=== PATIENT | female | born 1930 | race Caucasian/White ===

== ENCOUNTER 2016-12-22 11:43 | Inpatient (IN) | payer MEDICARE, OTHER ==
--- NOTE | 2016-12-22 12:06 | ED ---
General Adult HPI - General Source: patient, family, RN notes reviewed Mode of arrival: wheelchair Limitations: no limitations <Geoff Gupta - Last Filed: 12/22/16 14:21> <Kofi Thorpe - Last Filed: 12/22/16 17:43> - General Chief complaint: Fall Stated complaint: fall Time Seen by Provider: 12/22/16 11:55 - History of Present Illness Initial comments: Patient is a 86-year-old female who presents emergency room today with a chief complaint of fall that occurred approximately an hour and a half ago. Does admit that she was trying to put on her shoes when she slipped on the hardwood floor falling down in the right side of her cheek. States he was no loss conscious. Denies any headache. Does admit some bruising some swelling locally to the right cheek area but denies any other complaints. Does admit that she is on Coumadin. She states she does check the level at home checked it this morning was 3.1. Denies any other complaints or associated symptoms at this time. Patient denies any recent fever, chills, shortness of breath, chest pain, back pain, abdominal pain, nausea or vomiting, numbness or tingling, dysuria or hematuria, constipation or diarrhea, headaches or visual changes, or any other complaints. (Geoff Gupta) - Related Data Home Medications Medication Instructions Recorded Confirmed Atenolol [Tenormin] 50 mg PO BID 12/22/16 12/22/16 Furosemide [Lasix] 80 mg PO DAILY 12/22/16 12/22/16 Levothyroxine Sodium [Synthroid] 75 mcg PO DAILY 12/22/16 12/22/16 Lisinopril [Zestril] 20 mg PO BID 12/22/16 12/22/16 Potassium Chloride [Klor-Con M15] 15 meq PO DAILY 12/22/16 12/22/16 Simvastatin [Zocor] 40 mg PO HS 12/22/16 12/22/16 Warfarin [Coumadin] 2.5 mg PO MOWESA 12/22/16 12/22/16 Warfarin [Coumadin] 3.75 mg PO SUTUTHFR 12/22/16 12/22/16 hydrALAZINE HCL [Apresoline] 50 mg PO TID 12/22/16 12/22/16 Previous Rx's Medication Instructions Recorded Sulfamethox-Tmp 800-160Mg [Bactrim 1 tab PO Q12HR #14 tab 12/22/16 DS 800-160 mg] Allergies Allergy/AdvReac Type Severity Reaction Status Date / Time codeine Allergy Unknown Verified 12/22/16 12:12 Review of Systems ROS Other: All systems not noted in ROS Statement are negative. <Geoff Gupta - Last Filed: 12/22/16 14:21> ROS Other: All systems not noted in ROS Statement are negative. <Kofi Thorpe - Last Filed: 12/22/16 17:43> ROS Statement: Those systems with pertinent positive or pertinent negative responses have been documented in the HPI. Past Medical History Past Medical History: Atrial Fibrillation, Heart Failure, CVA/TIA History of Any Multi-Drug Resistant Organisms: None Reported Past Surgical History: Cholecystectomy Past Psychological History: No Psychological Hx Reported Smoking Status: Never smoker Past Alcohol Use History: None Reported Past Drug Use History: None Reported <Geoff Gupta - Last Filed: 12/22/16 14:21> General Exam Limitations: no limitations <Geoff Gupta - Last Filed: 12/22/16 14:21> General appearance: alert, in no apparent distress Head exam: Present: atraumatic, normocephalic, normal inspection Eye exam: Present: normal appearance, PERRL, EOMI. Absent: scleral icterus, conjunctival injection, periorbital swelling ENT exam: Present: normal exam, mucous membranes moist Neck exam: Present: normal inspection. Absent: tenderness, meningismus, lymphadenopathy Respiratory exam: Present: normal lung sounds bilaterally, respiratory distress , chest wall tenderness, accessory muscle use, decreased breath sounds, prolonged expiratory. Absent: wheezes, rales, rhonchi, stridor Cardiovascular Exam: Present: normal rhythm, tachycardia, normal heart sounds. Absent: systolic murmur, diastolic murmur, rubs, gallop, clicks GI/Abdominal exam: Present: soft, normal bowel sounds. Absent: distended, tenderness, guarding, rebound, rigid Extremities exam: Present: normal inspection, full ROM, normal capillary refill. Absent: tenderness, pedal edema, joint swelling, calf tenderness Back exam: Present: normal inspection Neurological exam: Present: alert, oriented X3, CN II-XII intact Psychiatric exam: Present: normal affect, normal mood Skin exam: Present: warm, dry, intact, normal color. Absent: rash <Kofi Thorpe - Last Filed: 12/22/16 17:43> - General Exam Comments Initial Comments: General: The patient is awake and alert, in no distress, and does not appear acutely ill. Eye: Pupils are equal, round and reactive to light, extra-ocular movements are intact. No nystagmus. There is normal conjunctiva bilaterally. No signs of icterus. Ears, nose, mouth and throat: There are moist mucous membranes and no oral lesions. bruising to the right cheek. Neck: The neck is supple, there is no tenderness or JVD. Cardiovascular: There is a regular rate and rhythm. No murmur, rub or gallop is appreciated. Respiratory: Lungs are clear to auscultation, respirations are non-labored, breath sounds are equal. No wheezes, stridor, rales, or rhonchi. Gastrointestinal: Soft, non-distended, non-tender abdomen without masses or organomegaly noted. There is no rebound or guarding present. No CVA tenderness. Bowel sounds are unremarkable. Musculoskeletal: Normal ROM, no tenderness. Strength 5/5. Sensation intact. Pulses equal bilaterally 2+. Neurological: A&O x 3. CN II-XII intact, There are no obvious motor or sensory deficits. Coordination appears grossly intact. Speech is normal. Skin: Skin is warm and dry and no rashes or lesions are noted. Bruising to the right cheek. Psychiatric: Cooperative, appropriate mood & affect, normal judgment. (Geoff Gupta) Course <Geoff Gupta - Last Filed: 12/22/16 14:21> <Kofi Thorpe - Last Filed: 12/22/16 17:43> Vital Signs 12/22/16 12/22/16 12/22/16 11:46 15:00 15:03 Temperature 97.5 F L 98.4 F Pulse Rate 100 101 H Respiratory 20 16 Rate Blood Pressure 136/97 167/79 O2 Sat by Pulse 98 80 L 93 L Oximetry 12/22/16 12/22/16 15:41 16:51 Temperature 97.3 F L Pulse Rate 71 75 Respiratory 20 18 Rate Blood Pressure 174/81 157/83 O2 Sat by Pulse 96 97 Oximetry - Reevaluation(s) Reevaluation #1: 12/22/16 12:06 Patient's family member that pulled nurse aside and asked for basic labs to be checked she has not had labs done in a while and they were concerned. Patient will have INR, CBC and a BMP currently pending CT of facial bones and head. Patient is no complaints other than recent the right cheek at this time. (Geoff Gupta) Reevaluation #2: 12/22/16 17:42 Negative improved oxygen with oxygen as well as will be placed on breathing treatments 12/22/16 17:42 And diuresis for CHF (Kofi Thorpe) Medical Decision Making - Lab Data Result diagrams: 12/22/16 12:45 12/22/16 12:45 <Geoff Gupta - Last Filed: 12/22/16 14:21> - Lab Data Result diagrams: 12/22/16 12:45 12/22/16 12:45 <Kofi Thorpe - Last Filed: 12/22/16 17:43> - Medical Decision Making Patient reexamined at this time shows no signs of distress. Patient's CT of the facial bones negative. Patient's CT of the head negative for any acute abnormalities. Results were discussed with patient. Patient admits that she did hit the right cheek. Does not believe she hit the) no loss consciousness. Denies any headache. Patient's labs were obtained family states that she had not seen the doctor and while and concern. Labs reviewed INR 2.9. Advised follow-up. Patient's urinalysis does show evidence for urinary tract infection. Will be started on antibiotic. Patient family updated. Patient will be discharged home. Patient and family have been updated and are aware the plan state understanding and are in agreement (Geoff Gupta) A6 female the ER for evaluation of weakness, fall, patient does have confluent pneumonia with urinary tract infection and CHF, exertional dyspnea and hypoxia. Patient be admitted for cardiology evaluation. (Kofi Thorpe) - Lab Data Lab Results 12/22/16 12/22/16 12/22/16 Range/Units 12:45 12:45 12:45 WBC 6.8 (3.8-10.6) k/uL RBC 4.02 (3.80-5.40) m/uL Hgb 12.2 (11.4-16.0) gm/dL Hct 37.6 (34.0-46.0) % MCV 93.4 (80.0-100.0) fL MCH 30.4 (25.0-35.0) pg MCHC 32.6 (31.0-37.0) g/dL RDW 15.7 H (11.5-15.5) % Plt Count 184 (150-450) k/uL Neutrophils % 78 % Lymphocytes % 13 % Monocytes % 5 % Eosinophils % 1 % Basophils % 1 % Neutrophils # 5.3 (1.3-7.7) k/uL Lymphocytes # 0.9 L (1.0-4.8) k/uL Monocytes # 0.4 (0-1.0) k/uL Eosinophils # 0.1 (0-0.7) k/uL Basophils # 0.1 (0-0.2) k/uL PT 28.3 H (9.0-12.0) sec INR 2.9 (<1.1) Sodium 141 (137-145) mmol/L Potassium 4.0 (3.5-5.1) mmol/L Chloride 98 (98-107) mmol/L Carbon Dioxide 32 H (22-30) mmol/L Anion Gap 11 mmol/L BUN 30 H (7-17) mg/dL Creatinine 0.89 (0.52-1.04) mg/dL Est GFR (MDRD) Af Amer >60 (>60 ml/min/1.73 sqM) Est GFR (MDRD) Non-Af >60 (>60 ml/min/1.73 sqM) Glucose 120 H (74-99) mg/dL Calcium 9.5 (8.4-10.2) mg/dL Total Creatine Kinase (30-135) U/L CK-MB (CK-2) (0.0-2.4) ng/mL CK-MB (CK-2) Rel Index Troponin I (0.000-0.034) ng/mL NT-Pro-B Natriuret Pep pg/mL Urine Color Urine Appearance (Clear) Urine pH (5.0-8.0) Ur Specific [place] (1.001-1.035) Urine Protein (Negative) Urine Glucose (UA) (Negative) Urine Ketones (Negative) Urine Blood (Negative) Urine Nitrate (Negative) Urine Bilirubin (Negative) Urine Urobilinogen (<2.0) mg/dL Ur Leukocyte Esterase (Negative) Urine RBC (0-5) /hpf Urine WBC (0-5) /hpf Ur Squamous Epith Cells (0-4) /hpf Urine Bacteria (None) /hpf Hyaline Casts (0-2) /lpf Urine Mucus (None) /hpf 12/22/16 12/22/16 12/22/16 Range/Units 12:45 12:45 13:31 WBC (3.8-10.6) k/uL RBC (3.80-5.40) m/uL Hgb (11.4-16.0) gm/dL Hct (34.0-46.0) % MCV (80.0-100.0) fL MCH (25.0-35.0) pg MCHC (31.0-37.0) g/dL RDW (11.5-15.5) % Plt Count (150-450) k/uL Neutrophils % % Lymphocytes % % Monocytes % % Eosinophils % % Basophils % % Neutrophils # (1.3-7.7) k/uL Lymphocytes # (1.0-4.8) k/uL Monocytes # (0-1.0) k/uL Eosinophils # (0-0.7) k/uL Basophils # (0-0.2) k/uL PT (9.0-12.0) sec INR (<1.1) Sodium (137-145) mmol/L Potassium (3.5-5.1) mmol/L Chloride (98-107) mmol/L Carbon Dioxide (22-30) mmol/L Anion Gap mmol/L BUN (7-17) mg/dL Creatinine (0.52-1.04) mg/dL Est GFR (MDRD) Af Amer (>60 ml/min/1.73 sqM) Est GFR (MDRD) Non-Af (>60 ml/min/1.73 sqM) Glucose (74-99) mg/dL Calcium (8.4-10.2) mg/dL Total Creatine Kinase 71 (30-135) U/L CK-MB (CK-2) 3.3 H* (0.0-2.4) ng/mL CK-MB (CK-2) Rel Index 4.6 Troponin I <0.012 (0.000-0.034) ng/mL NT-Pro-B Natriuret Pep 4080 pg/mL Urine Color Light Yellow Urine Appearance Cloudy H (Clear) Urine pH 7.0 (5.0-8.0) Ur Specific [place] 1.005 (1.001-1.035) Urine Protein Trace H (Negative) Urine Glucose (UA) Negative (Negative) Urine Ketones Negative (Negative) Urine Blood Negative (Negative) Urine Nitrate Negative (Negative) Urine Bilirubin Negative (Negative) Urine Urobilinogen <2.0 (<2.0) mg/dL Ur Leukocyte Esterase Large H (Negative) Urine RBC 3 (0-5) /hpf Urine WBC 61 H (0-5) /hpf Ur Squamous Epith Cells <1 (0-4) /hpf Urine Bacteria Rare H (None) /hpf Hyaline Casts 10 H (0-2) /lpf Urine Mucus Rare H (None) /hpf Critical Care Time Critical Care Time: Yes Total Critical Care Time: 31 <Kofi Thorep - Last Filed: 12/22/16 17:43> Disposition Time of Disposition: 14:23 <Geoff Gupta - Last Filed: 12/22/16 14:21> <Kofi Thorpe - Last Filed: 12/22/16 17:43> Clinical Impression: Fall, Facial contusion, UTI (urinary tract infection), Pneumonia, CHF exacerbation, Hypoxia Disposition: ADMITTED IP TO THIS HOSP Condition: Good Additional Instructions: Please use medication as discussed. Please follow-up with family doctor in the next 2 days. Please return to emergency room if the symptoms increase or worsen or for any other concerns. Prescriptions: Sulfamethox-Tmp 800-160Mg [Bactrim DS 800-160 mg] 1 tab PO Q12HR #14 tab Referrals: Demar Valente DO [Primary Care Provider] - 1-2 days
--- NOTE | 2016-12-22 12:43 | CT ---
EXAMINATION TYPE: CT brain wo con DATE OF EXAM: 12/22/2016 12:37 PM COMPARISON: NONE HISTORY: Fall today with facial injuries. CT DLP: 1703 mGycm Automated exposure control for dose reduction was used. FINDINGS: Exam limited due to motion artifact. No obvious intraparenchymal hemorrhage. No midline shift. Calvar ium intact. Generalized degenerative change seen. Changes of chronic sinusitis noted. IMPRESSION: Limited exam due to artifact demonstrates no obvious acute intracranial hemorrhage, mass effect, or m idline shift is seen.
--- NOTE | 2016-12-22 12:47 | CT ---
EXAMINATION TYPE: CT facial bones wo con DATE OF EXAM: 12/22/2016 12:37 PM COMPARISON: NONE HISTORY: Fall today with facial injuries. CT DLP: 1703 mGycm Automated exposure control for dose reduction was used. TECHNIQUE: CT scan of the sinuses is performed without contrast, axial images are obtained, coronal r eformatted images are also reviewed. FINDINGS: Changes of mild chronic sinusitis noted. Degenerative change of the spine. Calcific changes involving the carotid arteries Globes are intact. Nasal septal deviation noted. The ostiomeatal complex is patent bilaterally on the coronal images. Visualized portion of mastoid air cells show no abnormal opacification. The globes are intact bilate rally. IMPRESSION: 1. No acute fracture
[2016-12-22 13:18] LABS: Basophils # (A) 0.1 k/uL (0-0.2); Basophils % (A) 1 %; CH 30.2; CHCM 32.6; Eosinophils # (A) 0.1 k/uL (0-0.7); Eosinophils % (A) 1 %; HCT 37.6 % (34.0-46.0); HDW 3.11; HGB 12.2 gm/dL (11.4-16.0); Luc # (Auto) 0.14; Luc % (Auto) 2; Lymphocytes # (A) 0.9 k/uL (1.0-4.8); Lymphocytes % (A) 13 %; MCH 30.4 pg (25.0-35.0); MCHC 32.6 g/dL (31.0-37.0); MCV 93.4 fL (80.0-100.0); Mean Platelet Volume 9.7; Monocytes # (A) 0.4 k/uL (0-1.0); Monocytes % (A) 5 %; Neutrophils # (A) 5.3 k/uL (1.3-7.7); Neutrophils % (A) 78 %; RBC 4.02 m/uL (3.80-5.40); RDW 15.7 % (11.5-15.5); WBC 6.8 k/uL (3.8-10.6); WBC (Perox) 7.27
[2016-12-22 13:26] LABS: INR 2.9 (<1.1); Prothrombin Time 28.3 sec (9.0-12.0)
[2016-12-22 13:38] LABS: Anion Gap 11 mmol/L; Blood Urea Nitrogen 30 mg/dL (7-17); Calcium 9.5 mg/dL (8.4-10.2); Carbon Dioxide 32 mmol/L (22-30); Chloride 98 mmol/L (98-107); Glucose 120 mg/dL (74-99); Non-African American GFR(MDRD) >60 (>60 ml/min/1.73 sqM); Sodium 141 mmol/L (137-145)
[2016-12-22 14:02] LABS: Appearance,Urine Cloudy (Clear); Bacteria,Urine Rare /hpf; Bilirubin,Urine Negative (Negative); Glucose,Urine (UA) Negative (Negative); Ketones,Urine Negative (Negative); Leukocyte Esterase,Urine Large (Negative); Mucus,Urine Rare /hpf; Nitrite,Urine Negative (Negative); Particle Count 71468; Protein,Urine Trace (Negative); RBC,Urine 3 /hpf (0-5); Specific Gravity,Urine 1.005 (1.001-1.035); Squamous Epithelial Cell,Urine <1 /hpf (0-4); UA Billing (MACRO vs. MICRO) MICRO; Urobilinogen,Urine <2.0 mg/dL (<2.0); WBC,Urine 61 /hpf (0-5)
--- NOTE | 2016-12-22 15:38 | ED ---
Medical Decision Making - Medical Decision Making Or discharge nurse and staff repeat vitals and 83% on room air. Patient denies any shortness of breath. Patient does have history of CHF. Does admit some leg swelling. Patient's family at bedside stating that her Lasix was recently increased from 40-80 mg. States that swelling of legs have improved. Patient' s pulse ox remains coherent reevaluation. Patient denies any shortness breath or any other complaints. Patient will have chest x-ray along with further lab and workup. Patient placed on oxygen 3 L currently 94%. Patient asymptomatic and resting comfortably in the stretcher. EKG performed at 1508: Shows A. fib with occasional PVC. QRS 86. QT/QTC 370/ 434. Acute ST changes. Patient reevaluated and shows no signs of distress. Resting comfortably. Patient's pulse ox remains low on room air is been on 3 L of oxygen here in the ER. Patient complains. Patient's chest x-ray does show evidence for CHF along with possible pneumonia. Patient BNP greater than 4000. Patient is on Lasix at home will be given dose of Lasix here in the emergency room started on antibiotics both Rocephin and azithromycin cover for pneumonia and also urinary tract infection. Patient will be admitted to the hospital for CHF, pneumonia, UTI. - Lab Data Result diagrams: 12/22/16 12:45 12/22/16 12:45 Lab Results 12/22/16 12/22/16 12/22/16 Range/Units 12:45 12:45 12:45 WBC 6.8 (3.8-10.6) k/uL RBC 4.02 (3.80-5.40) m/uL Hgb 12.2 (11.4-16.0) gm/dL Hct 37.6 (34.0-46.0) % MCV 93.4 (80.0-100.0) fL MCH 30.4 (25.0-35.0) pg MCHC 32.6 (31.0-37.0) g/dL RDW 15.7 H (11.5-15.5) % Plt Count 184 (150-450) k/uL Neutrophils % 78 % Lymphocytes % 13 % Monocytes % 5 % Eosinophils % 1 % Basophils % 1 % Neutrophils # 5.3 (1.3-7.7) k/uL Lymphocytes # 0.9 L (1.0-4.8) k/uL Monocytes # 0.4 (0-1.0) k/uL Eosinophils # 0.1 (0-0.7) k/uL Basophils # 0.1 (0-0.2) k/uL PT 28.3 H (9.0-12.0) sec INR 2.9 (<1.1) Sodium 141 (137-145) mmol/L Potassium 4.0 (3.5-5.1) mmol/L Chloride 98 (98-107) mmol/L Carbon Dioxide 32 H (22-30) mmol/L Anion Gap 11 mmol/L BUN 30 H (7-17) mg/dL Creatinine 0.89 (0.52-1.04) mg/dL Est GFR (MDRD) Af Amer >60 (>60 ml/min/1.73 sqM) Est GFR (MDRD) Non-Af >60 (>60 ml/min/1.73 sqM) Glucose 120 H (74-99) mg/dL Calcium 9.5 (8.4-10.2) mg/dL Total Creatine Kinase (30-135) U/L CK-MB (CK-2) (0.0-2.4) ng/mL CK-MB (CK-2) Rel Index Troponin I (0.000-0.034) ng/mL NT-Pro-B Natriuret Pep pg/mL Urine Color Urine Appearance (Clear) Urine pH (5.0-8.0) Ur Specific [place] (1.001-1.035) Urine Protein (Negative) Urine Glucose (UA) (Negative) Urine Ketones (Negative) Urine Blood (Negative) Urine Nitrate (Negative) Urine Bilirubin (Negative) Urine Urobilinogen (<2.0) mg/dL Ur Leukocyte Esterase (Negative) Urine RBC (0-5) /hpf Urine WBC (0-5) /hpf Ur Squamous Epith Cells (0-4) /hpf Urine Bacteria (None) /hpf Hyaline Casts (0-2) /lpf Urine Mucus (None) /hpf 12/22/16 12/22/16 12/22/16 Range/Units 12:45 12:45 13:31 WBC (3.8-10.6) k/uL RBC (3.80-5.40) m/uL Hgb (11.4-16.0) gm/dL Hct (34.0-46.0) % MCV (80.0-100.0) fL MCH (25.0-35.0) pg MCHC (31.0-37.0) g/dL RDW (11.5-15.5) % Plt Count (150-450) k/uL Neutrophils % % Lymphocytes % % Monocytes % % Eosinophils % % Basophils % % Neutrophils # (1.3-7.7) k/uL Lymphocytes # (1.0-4.8) k/uL Monocytes # (0-1.0) k/uL Eosinophils # (0-0.7) k/uL Basophils # (0-0.2) k/uL PT (9.0-12.0) sec INR (<1.1) Sodium (137-145) mmol/L Potassium (3.5-5.1) mmol/L Chloride (98-107) mmol/L Carbon Dioxide (22-30) mmol/L Anion Gap mmol/L BUN (7-17) mg/dL Creatinine (0.52-1.04) mg/dL Est GFR (MDRD) Af Amer (>60 ml/min/1.73 sqM) Est GFR (MDRD) Non-Af (>60 ml/min/1.73 sqM) Glucose (74-99) mg/dL Calcium (8.4-10.2) mg/dL Total Creatine Kinase 71 (30-135) U/L CK-MB (CK-2) 3.3 H* (0.0-2.4) ng/mL CK-MB (CK-2) Rel Index 4.6 Troponin I <0.012 (0.000-0.034) ng/mL NT-Pro-B Natriuret Pep 4080 pg/mL Urine Color Light Yellow Urine Appearance Cloudy H (Clear) Urine pH 7.0 (5.0-8.0) Ur Specific [place] 1.005 (1.001-1.035) Urine Protein Trace H (Negative) Urine Glucose (UA) Negative (Negative) Urine Ketones Negative (Negative) Urine Blood Negative (Negative) Urine Nitrate Negative (Negative) Urine Bilirubin Negative (Negative) Urine Urobilinogen <2.0 (<2.0) mg/dL Ur Leukocyte Esterase Large H (Negative) Urine RBC 3 (0-5) /hpf Urine WBC 61 H (0-5) /hpf Ur Squamous Epith Cells <1 (0-4) /hpf Urine Bacteria Rare H (None) /hpf Hyaline Casts 10 H (0-2) /lpf Urine Mucus Rare H (None) /hpf Disposition Clinical Impression: Fall, Facial contusion, UTI (urinary tract infection), Pneumonia, CHF exacerbation Disposition: ADMITTED IP TO THIS HOSP Condition: Good Additional Instructions: Please use medication as discussed. Please follow-up with family doctor in the next 2 days. Please return to emergency room if the symptoms increase or worsen or for any other concerns. Prescriptions: Sulfamethox-Tmp 800-160Mg [Bactrim DS 800-160 mg] 1 tab PO Q12HR #14 tab Referrals: Demar Valente DO [Primary Care Provider] - 1-2 days Time of Disposition: 16:50
[2016-12-22 16:08] LABS: Creatine Kinase 71 U/L (30-135)
[2016-12-22 16:22] LABS: Troponin I <0.012 ng/mL (0.000-0.034)
[2016-12-22 16:25] LABS: Creatine Kinase MB 3.3 ng/mL (0.0-2.4)
--- NOTE | 2016-12-22 16:30 | XR ---
EXAMINATION TYPE: XR chest 2V DATE OF EXAM: 12/22/2016 4:22 PM COMPARISON: NONE TECHNIQUE: PA and lateral views submitted. HISTORY: Shortness of breath FINDINGS: The lungs are clear and there is no pneumothorax, pleural effusion, or focal pneumonia. The heart is enlarged. There is a perihilar interstitial pattern. Atherosclerotic change aorta. Metallic device o verlying soft tissue is a right neck. No pneumothorax. IMPRESSION: 1. Perihilar interstitial pattern with cardiomegaly. Correlate for patchy infiltrate versus mild veno us congestion.
[2016-12-22] MEDS ORDERED: AZITHROMYCIN 500 MG in SODIUM CHLORIDE 0.9% 250 ML IVPB STA (16:52)
[2016-12-22] MEDS ORDERED: PNEUMONIA PROTOCOL UTILIZED 1 EACH MISC PO PRN (17:18)
[2016-12-22] MEDS ORDERED: FUROSEMIDE 10 MG/ML 4 ML VIAL IV STA (17:42)
[2016-12-22] MEDS ORDERED: IPRATROPIUM-ALBUTEROL 3 ML NEB INHALATION PRN (17:43)
[2016-12-22] MEDS: FUROSEMIDE 10 MG/ML 4 ML VIAL IV SCH (20:35)
[2016-12-22] MEDS ORDERED: ACETAMINOPHEN TAB 325 MG TAB PO PRN (21:06)
[2016-12-22] MEDS: hydrALAZINE HCL 50 MG TAB PO SCH (21:21)
[2016-12-22] MEDS: LISINOPRIL 20 MG TAB PO SCH (21:21)
[2016-12-22] MEDS: ATORVASTATIN 20 MG TAB PO SCH (21:21)
[2016-12-22] MEDS: ATENOLOL 50 MG TAB PO SCH (21:22)
[2016-12-23] MEDS: LEVOTHYROXINE 75 MCG TAB PO SCH (06:05)
[2016-12-23 08:30] LABS: INR 3.1 (<1.1); Prothrombin Time 29.9 sec (9.0-12.0)
[2016-12-23] MEDS: LISINOPRIL 20 MG TAB PO SCH (08:39)
[2016-12-23] MEDS: hydrALAZINE HCL 50 MG TAB PO SCH (08:39)
[2016-12-23] MEDS: ATENOLOL 50 MG TAB PO SCH ×2 (08:39→21:08)
[2016-12-23] MEDS: AZITHROMYCIN 500 MG TAB PO SCH (08:39)
[2016-12-23] MEDS: FUROSEMIDE 10 MG/ML 4 ML VIAL IV SCH (08:39)
[2016-12-23 12:21] LABS: Cancer Anitgen 153 21.3 U/mL (<35.1)
--- NOTE | 2016-12-23 13:18 | CT ---
EXAMINATION TYPE: CT chest wo con DATE OF EXAM: 12/23/2016 12:38 PM COMPARISON: NONE HISTORY: Pulmonary fibrosis CT DLP: 100 mGycm, Automated exposure control for dose reduction was used. CONTRAST: None TECHNIQUE: Axial images were obtained at 1 mm thick sections at 10 mm intervals. Supine imaging is pe rformed. FINDINGS: Portion of the thyroid visualized is normal. Some mild groundglass opacity is present. This likely on the basis of some mild pulmonary edema. Foca l suspicious nodules are not evident. No discrete masses are evident. No enlarged mediastinal or hilar adenopathy is evident. The ascending aorta diameter at the level o f the main pulmonary artery is 3.4 cm. The main pulmonary artery diameter at the bifurcation is 3.6 cm. Coronary artery calcification is present. Limited CT sections are obtained through the upper abdomen which are unremarkable. Minimal left pleural effusion is present. Limited CT sections are obtained through the upper abdomen. Abdomen is essentially unremarkable. IMPRESSIONS: 1. Minimal groundglass opacity. Correlate for some mild pulmonary edema
--- NOTE | 2016-12-23 13:28 | HP ---
DATE OF ADMISSION: Patient is admitted after a fall Patient had a facial CT and head CT, which did not show any intracranial hemorrhage or any significant fractures. Patient basically came in with those symptoms. The other issues that are going on now are patient is basically admitted for CHF. Patient has a chest x-ray which showed some pulmonary venous congestion. 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 Patient does have history of atrial fibrillation, rate controlled on Coumadin. The other issue is patient's family is concerned about weight loss. Apparently, she lost 20 pounds in about a month, which is an unintentional weight loss. Patient has been eating well. Patient is 86 years old. Patient has passed all the cancer screening procedures. Because of the concern of the family, I am ordering some tumor markers including CEA, CA19-9 and CA125, alpha-fetoprotein, may not be much beneficial. She may not be a candidate for any kind of therapy at this age even if we find some kind of cancer, but will go ahead and order those tests. I am obtaining a CT of the chest to see if there is any chronic interstitial process, it also helps me with pulmonary edema. An echocardiogram will be obtained. Patient's INR is 3.1, will hold off on Coumadin today. We will recheck her INR tomorrow. Patient probably can get 2.5 mg of Coumadin tomorrow. Patient denied any fever, chills. Patient is actually occasionally coughing up streaks of blood. Beyond that, patient denied any fever, chills. Patient denied any chest pain. REVIEW OF SYSTEMS: CONSTITUTIONAL: As described in HPI. HEENT: No recent visual problems or hearing problems. Denied any sore throat. CARDIOVASCULAR: No chest pain, orthopnea, PND, no palpitations, no syncope. PULMONARY: No shortness of breath, no cough, no hemoptysis. GASTROINTESTINAL: No diarrhea, no nausea, no vomiting, no abdominal pain. Normoactive bowel sounds. NEUROLOGICAL: No headaches, no weakness, no numbness. HEMATOLOGICAL: Denies any bleeding or petechiae. GENITOURINARY: Denies any burning micturition, frequency, or urgency. MUSCULOSKELETAL/RHEUMATOLOGICAL: As described in HPI. ENDOCRINE: Denies any polyuria or polydipsia. The rest of the 14 point review of systems is negative. Home medications include: 1. Atenolol. 2. Lasix. 3. Levothyroxine. 4. Lisinopril. 5. Potassium chloride. 6. Simvastatin. 7. Coumadin. 8. Hydralazine 50 p.o. t.i.d. 9. Bactrim, not sure why patient is on Bactrim, probably for her UTIs. Patient is a poor historian because of her hearing issues mainly. PAST MEDICAL HISTORY: Significant for atrial fibrillation, questionable heart failure, CVA, TIA in the past, hyperlipidemia, hypertension, osteoarthritis, hypothyroidism, appendectomy, cholecystectomy, cataract surgery. Patient denied any smoking, alcohol abuse or any drug abuse. FAMILY HISTORY: Mom of old age. No significant medical problems in her mother or father. PHYSICAL EXAMINATION: Temperature 96.6, pulse of 80, respiratory rate of 16, blood pressure 123/58, saturating at 96% on room air. GENERAL: The patient is an elderly female, alert and oriented x3, thin built. HEENT: Pupils are round and equally reacting to light. EOMI. No scleral icterus. No conjunctival pallor. Normocephalic, atraumatic. No pharyngeal erythema. No thyromegaly. CARDIOVASCULAR: S1 and S2 present. I am not sure about S3. I did not hear any murmurs, rubs, or gallops, but patient does appear to have minimally elevated JVD along with 1+ pitting pedal edema. PULMONARY: Chest is clear to auscultation, no wheezing or crackles. ABDOMEN: Soft, nontender, nondistended, normoactive bowel sounds. No palpable organomegaly. MUSCULOSKELETAL: No joint swelling or deformity. EXTREMITIES: No cyanosis, clubbing, or pedal edema. NEUROLOGICAL: Gross neurological examination did not reveal any focal deficits. SKIN: No rashes. LABORATORY DATA: CBC, CMP, and INR significant for elevated INR of 3.1 because of Coumadin. UA no significant abnormality was appreciated except some leukocyte esterase and WBCs in the urine, which can be asymptomatic bacteriuria. Patient is actually on treatment for urinary tract infection with Bactrim. Other significant labs is elevated BNP. Chest x-ray as mentioned above. Facial CT as mentioned above. ASSESSMENT AND PLAN: 1. Possibility of congestive heart failure, possible chronic diastolic dysfunction with mild acute exacerbation. I believe 40 b.i.d. will be too much of dose of Lasix. Patient takes 80 at home. I will just change it to 40 daily. Will get an echocardiogram and a CT of the chest as mentioned above, possibility of interstitial lung disease and pulmonary fibrosis, although patient denied any symptoms at this point of time. 2. Fall, appears to be mechanical fall. Will obtain a PT and OT consultation. 3. Atrial fibrillation, rate controlled at this point of time. Patient appears to have chronic atrial fibrillation. 4. Patient is on Coumadin anticoagulation, which will be continued. 5. Hyperlipidemia. 6. Hypertension. 7. Osteoarthritis. 8. Significant weight loss, unintentional weight loss. Patient has passed any screening procedures for cancer any further evaluation for any cancers may not be beneficial anyways will obtain some basic test including CT of the chest which will help me with common cancers like lung cancer and I will evaluate for some other common cancers including colon cancer, although she has passed screening procedure. I will obtain carcinoembryonic antigen ovarian cancer will obtain ( ) CA125 and pancreatic cancer CA 19-9. Beyond that any further workup may not be beneficial. I will discuss with the family regarding this. CODE STATUS: Please refer to the chart for that. Will monitor I's and O's, will monitor kidney function and electrolytes. Patient's primary care physician is Dr. Demar Valente. JOLENE
[2016-12-23 15:25] VITALS: BMI 22.3
[2016-12-23] MEDS ORDERED: FUROSEMIDE 10 MG/ML 4 ML VIAL IV SCH (21:00)
[2016-12-23] MEDS: ATORVASTATIN 20 MG TAB PO SCH (21:08)
[2016-12-24] MEDS: LEVOTHYROXINE 75 MCG TAB PO SCH (06:51)
[2016-12-24] MEDS: ATENOLOL 50 MG TAB PO SCH ×2 (08:06→21:17)
[2016-12-24] MEDS: LISINOPRIL 20 MG TAB PO SCH (08:06)
[2016-12-24] MEDS: AZITHROMYCIN 500 MG TAB PO SCH (08:06)
[2016-12-24 08:52] LABS: INR 2.6 (<1.1); Prothrombin Time 25.3 sec (9.0-12.0)
[2016-12-24 09:00] LABS: Anion Gap 10 mmol/L; Blood Urea Nitrogen 27 mg/dL (7-17); Carbon Dioxide 34 mmol/L (22-30); Chloride 99 mmol/L (98-107); Glucose 161 mg/dL (74-99); Non-African American GFR(MDRD) >60 (>60 ml/min/1.73 sqM); Potassium 3.6 mmol/L (3.5-5.1); Sodium 143 mmol/L (137-145)
[2016-12-24] MEDS ORDERED: FUROSEMIDE 10 MG/ML 4 ML VIAL IV SCH (09:00)
--- NOTE | 2016-12-24 15:06 | PN ---
Patient admitted after fall and physical therapy evaluated the patient. The patient is also being treated for heart failure diastolic dysfunction with acute exacerbation. Patient has improved creatinine with IV Lasix. IV Lasix will be increased to 40 mg twice a day and will continue with IV Lasix today and possibility of discharge tomorrow. Patient has elevated carcinoembryonic antigen as well as a CA125. CA125 elevation is normally seen in ovarian cancer but not diagnostic test for that. Same thing was discussed with the family. Patient has significant unintentional weight loss. We will consult Dr. Her, although patient probably will not be a candidate for any further intervention. REVIEW OF SYSTEMS: CARDIOVASCULAR: No chest pain, no orthopnea, no PND, no palpitations. PULMONARY: Denied any shortness of breath. No cough or hemoptysis. GASTROINTESTINAL: No diarrhea, nausea or vomiting. No abdominal pain. Normoactive bowel sounds. NEUROLOGIC: No headaches, no weakness, no numbness. Medications were reviewed. PHYSICAL EXAMINATION: VITAL SIGNS: Temperature 97.0, pulse of 75, respiratory rate of 20, blood pressure 133/77, saturating at 96% on room air. GENERAL: The patient is alert and oriented x3, not in any acute distress. Well developed, well nourished. HEENT: Pupils are round and equally reacting to light. EOMI. No scleral icterus. No conjunctival pallor. Normocephalic, atraumatic. No pharyngeal erythema. No thyromegaly. CARDIOVASCULAR: S1 and S2 present. Patient does have elevated JVD. PULMONARY: Minimal bibasilar crackles were appreciated. ABDOMEN: Soft, nontender, nondistended, normoactive bowel sounds. No palpable organomegaly. MUSCULOSKELETAL: No joint swelling or deformity. EXTREMITIES: No cyanosis, clubbing, or pedal edema. NEUROLOGICAL: Gross neurological examination did not reveal any focal deficits. SKIN: No rashes. Patient has a pending echocardiogram. LABORATORY DATA: CBC, CMP showed improvement in BUN and creatinine of 27 and 0.77. INR is 2.6, therapeutic. Patient will be started on 2 mg daily of Coumadin. ASSESSMENT AND PLAN: 1. Congestive heart failure, chronic diastolic dysfunction with acute exacerbation. We will continue with IV Lasix today. Recheck the creatinine, I's and O's and possibility of discharge tomorrow. 2. Fall, mechanical fall. PT and OT evaluation pending. 3. Atrial fibrillation, rate controlled, chronic atrial fibrillation, therapeutic on Coumadin. Coumadin dosing as mentioned above. 4. Hyperlipidemia. 5. Hypertension. 6. Significant unintentional weight loss with elevated CEA and CA125. Not diagnostic of ovarian cancer though and as per the request of the family, we will consult Dr. Her and get a vaginal pelvic ultrasound.
[2016-12-24] MEDS: WARFARIN 2 MG TAB PO SCH (17:25)
--- NOTE | 2016-12-24 17:34 | US ---
EXAMINATION TYPE: US pelvic complete DATE OF EXAM: 12/24/2016 4:54 PM COMPARISON: NONE CLINICAL HISTORY: rule out uterine ca. TECHNIQUE: Transabdominal (TA) Date of LMP: 1951 EXAM MEASUREMENTS: Uterus: 7.4 x 3.9 x 4.2 cm Endometrial Stripe: 0.5 cm Right Ovary: unable to visualize at this time Left Ovary: unable to visualize at this time TECHNOLOGIST IMPRESSION: Limited due to patient bladder fill and bowel gas transabdominally. Unable to perform transvaginal due to patient unable to empty bladder. Patient tried for 35 minutes without success at which point she refused to continue exam and asked to be taken back to her room. 1. Uterus: Retroverted Heterogeneous in echotexture 2. Endometrium: wnl 3. Right Ovary: Obscured by overlying bowel gas unable to visualize at this time 4. Left Ovary: Obscured by overlying bowel gas unable to visualize at this time 5. Bilateral Adnexa: appear wnl 6. Posterior cul-de-sac: appear wnl IMPRESSION: 1. Limited pelvic ultrasound. 2. Suspicious endometrial thickening or obvious masses within the uterus is not identified. Uterine e valuation is somewhat limited however.
[2016-12-24] MEDS: ATORVASTATIN 20 MG TAB PO SCH (21:17)
[2016-12-24] MEDS: FUROSEMIDE 10 MG/ML 4 ML VIAL IV SCH (21:18)
[2016-12-25] MEDS: LEVOTHYROXINE 75 MCG TAB PO SCH (06:29)
[2016-12-25 08:11] LABS: INR 2.4 (<1.1); Prothrombin Time 23.3 sec (9.0-12.0)
[2016-12-25] MEDS: FUROSEMIDE 10 MG/ML 4 ML VIAL IV SCH ×2 (08:19→20:08)
[2016-12-25] MEDS: LISINOPRIL 20 MG TAB PO SCH (08:22)
[2016-12-25] MEDS: ATENOLOL 50 MG TAB PO SCH ×2 (08:22→20:08)
[2016-12-25 08:32] LABS: Anion Gap 8 mmol/L; Blood Urea Nitrogen 32 mg/dL (7-17); Carbon Dioxide 37 mmol/L (22-30); Chloride 97 mmol/L (98-107); Glucose 99 mg/dL (74-99); Non-African American GFR(MDRD) >60 (>60 ml/min/1.73 sqM); Potassium 3.7 mmol/L (3.5-5.1); Sodium 142 mmol/L (137-145)
--- NOTE | 2016-12-25 15:44 | ECHOF ---
Referral Reason:CHF MEASUREMENTS -------- HEIGHT: 162.6 cm WEIGHT: 59.0 kg BP: 123/58 RVIDd: 2.4 cm (< 3.3) IVSd: 0.9 cm (0.6 - 1.1) LVIDd: 3.5 cm (3.9 - 5.3) LVPWd: 0.9 cm (0.6 - 1.1) IVSs: 1.4 cm LVIDs: 2.7 cm LVPWs: 1.5 cm LA Diam: 4.0 cm (2.7 - 3.8) LAESV Index (A-L): 40.67 ml/m Ao Diam: 2.8 cm (2.0 - 3.7) AV Cusp: 1.7 cm (1.5 - 2.6) MV EXCURSION: 19.436 mm (> 18.000) MV EF SLOPE: 137 mm/s (70 - 150) EPSS: 0.2 cm RAP: 15.00 mmHg RVSP: 91.73 mmHg FINDINGS -------- Atrial fibrillation. This was a technically good study. The left ventricular size is normal. Left ventricular wall thickness is normal. Overall left ventricular systolic function is normal with, an EF between 60 - 65 %. The right ventricle is normal in size. LA is severely dilated >40 ml/m2 The right atrium is normal in size. Aortic valve is trileaflet and is mildly thickened. Trace to mild aortic regurgitation. The mitral valve leaflets are mildly thickened. Mild mitral annular calcification present. Mild mitral regurgitation is present. Severe tricuspid regurgitation present. There is severe pulmonary hypertension. The right ventricular systolic pressure, as measured by Doppler, is 91.73mmHg. Trace/mild (physiologic) pulmonic regurgitation. The aortic root size is normal. The inferior vena cava is dilated with no significant inspiratory collapse which is consistent estimated right atrial pressure of >15 mmHg. There is no pericardial effusion. CONCLUSIONS -------- 1. Atrial fibrillation. 2. Trace to mild aortic regurgitation. 3. The mitral valve leaflets are mildly thickened. 4. Mild mitral annular calcification present. 5. Mild mitral regurgitation is present. 6. Severe tricuspid regurgitation present. 7. There is severe pulmonary hypertension. 8. The right ventricular systolic pressure, as measured by Doppler, is 91.73mmHg. 9. Trace/mild (physiologic) pulmonic regurgitation. 10. The aortic root size is normal. 11. The inferior vena cava is dilated with no significant inspiratory collapse which is consistent estimated right atrial pressure of >15 mmHg. 12. This was a technically good study. 13. There is no pericardial effusion. 14. The left ventricular size is normal. 15. Left ventricular wall thickness is normal. 16. Overall left ventricular systolic function is normal with, an EF between 60 - 65 %. 17. The right ventricle is normal in size. 18. LA is severely dilated >40 ml/m2 19. The right atrium is normal in size. 20. Aortic valve is trileaflet and is mildly thickened. TARIFF INSPECTOR: Colleen Faye RDCS
--- NOTE | 2016-12-25 15:45 | PN ---
Patient is to admitted after a fall and patient is being treated for diastolic dysfunction and acute exacerbation of CHF. Patient has elevated CA-125 with normal pelvic ultrasound. Oncology will evaluate the patient and patient is still in heart failure. Patient is still desaturating, because of which will continue with Lasix and will consult Cardiology. REVIEW OF SYSTEMS: CARDIOVASCULAR: No chest pain, no orthopnea, no PND, no palpitations. PULMONARY: Denied any shortness of breath. No cough or hemoptysis. GASTROINTESTINAL: No diarrhea, nausea or vomiting. No abdominal pain. Normoactive bowel sounds. NEUROLOGIC: No headaches, no weakness, no numbness. Medications were reviewed. PHYSICAL EXAMINATION: VITAL SIGNS: Temperature 97.2, pulse of 72, respiratory rate of 20, blood pressure is 130/62, saturating at 93% on 3 L of O2 by nasal cannula. PHYSICAL EXAMINATION: GENERAL: The patient is alert and oriented x3, not in any acute distress. Well developed, well nourished. HEENT: Pupils are round and equally reacting to light. EOMI. No scleral icterus. No conjunctival pallor. Normocephalic, atraumatic. No pharyngeal erythema. No thyromegaly. CARDIOVASCULAR: S1 and S2 present. Patient still has elevated JVD and pedal edema. No murmurs, rubs. PULMONARY: Chest is clear to auscultation, no wheezing or crackles. ABDOMEN: Soft, nontender, nondistended, normoactive bowel sounds. No palpable organomegaly. MUSCULOSKELETAL: No joint swelling or deformity. EXTREMITIES: No cyanosis, clubbing, or pedal edema. NEUROLOGICAL: Gross neurological examination did not reveal any focal deficits. SKIN: No rashes. LABORATORY DATA: BUN is minimally elevated, creatinine a little bit improved. ASSESSMENT AND PLAN: 1. Congestive heart failure with chronic diastolic dysfunction with acute exacerbation. 2. Deconditioning. 3. Atrial fibrillation, rate controlled, therapeutic on Coumadin. 4. Hyperlipidemia. 5. Hypertension. 6. Unintentional weight loss with incidental finding of elevated CA-125 with normal pelvic ultrasound. I had an extensive discussion with the family regarding these findings and I do not believe patient will need any further testing. No evidence of cancer is evident at this point of time anyways. Oncology will evaluate the patient. Plan is to continue with diuretic therapy, I's and O's and kidney function monitoring.
[2016-12-25] MEDS: WARFARIN 2 MG TAB PO SCH (18:20)
[2016-12-25] MEDS: ATORVASTATIN 20 MG TAB PO SCH (20:08)
[2016-12-26] MEDS: LEVOTHYROXINE 75 MCG TAB PO SCH (06:40)
[2016-12-26 08:19] VITALS: RESP 20
--- NOTE | 2016-12-26 09:05 | P.CRDCN ---
History of Present Illness Consult date: 12/26/16 Consult reason: congestive heart failure History of present illness: 86-year-old lady is admitted to hospital after a fall at home. Her chest x-ray showed mild pulmonary congestion. For this congestive heart failure as a diagnosis was entertained and patient is receiving IV Lasix. At the time of my evaluation this morning patient appears comfortable at rest and is free of symptoms. Denies chest pain or difficulty in breathing. She is extremely It is difficult to communicate with her. Echocardiogram shows normal LV function. Her congestive heart failure is probably acute exacerbation of chronic diastolic heart failure. Patient is currently being treated with diuretics. She has chronic atrial fibrillation and is anticoagulated with Coumadin. At the time of my evaluation she is feeling better. I reviewed her labs EKGs x- rays CAT scan and echo report. Review of Systems Constitutional: Denies chills. Denies fever. Eyes: Denies blurred vision. Denies pain. Ears, nose, mouth and throat: Denies headache. Denies sore throat. Severely deaf Cardiovascular: Denies chest pain. Denies shortness of breath. Respiratory: Denies cough. Shortness of breath Gastrointestinal: Denies abdominal pain. Denies diarrhea. Denies nausea. Denies vomiting. Musculoskeletal: Denies myalgias. Joint pains Integumentary: Denies pruritus. Denies rash. Neurological: Denies numbness. Denies weakness. Psychiatric: Denies anxiety. Denies depression. Endocrine: Denies fatigue. Denies weight change. Genitourinary: Denies burning, hematuria, frequency of urination. Hematological: No anemia or excess bleeding. Past Medical History Past Medical History: Atrial Fibrillation, Heart Failure, CVA/TIA, Hyperlipidemia, Hypertension, Osteoarthritis (OA), Pneumonia, Thyroid Disorder Additional Past Medical History / Comment(s): "HEARTBURN" THIN FRAGILE SKIN BRUISES EASILY PLEASE USE PAPER TAPE.UTI'S, KLETSEL DEHE WINTUN WORSE IN RT EAR. 2ND HAND SMOKE( SPOUSE) JEANINE LEG EDEMA, PNE VACCINE 2-3 YEARS AAGO NOT SURE OF DATE UNABLE TO VERIFY AT TIME OF ADMIT/DR OFFICE CLOSED. History of Any Multi-Drug Resistant Organisms: None Reported Past Surgical History: Appendectomy, Cholecystectomy Additional Past Surgical History / Comment(s): LT CATARACT Past Anesthesia/Blood Transfusion Reactions: No Reported Reaction Past Psychological History: No Psychological Hx Reported Smoking Status: Never smoker Past Alcohol Use History: None Reported Past Drug Use History: None Reported - Past Family History Mother Additional Family Medical History / Comment(s): MOM WAS HEALTHY-LIVED TO BE 106 YEARS OLD- FROM OLD AGE Father Additional Family Medical History / Comment(s): TB Medications and Allergies Home Medications Medication Instructions Recorded Confirmed Type Atenolol [Tenormin] 50 mg PO BID 12/22/16 12/22/16 History Cholecalciferol [Vitamin D3] 1,000 unit PO DAILY 12/22/16 12/22/16 History Furosemide [Lasix] 80 mg PO DAILY 12/22/16 12/22/16 History Levothyroxine Sodium [Synthroid] 75 mcg PO DAILY 12/22/16 12/22/16 History Lisinopril [Zestril] 20 mg PO BID 12/22/16 12/22/16 History Loratadine-Pseudoeph 10-240 mg 1 each PO DAILY 12/22/16 12/22/16 History [Claritin-D 24 Hr] Potassium Chloride [Klor-Con M15] 15 meq PO DAILY 12/22/16 12/22/16 History Simvastatin [Zocor] 40 mg PO HS 12/22/16 12/22/16 History Warfarin [Coumadin] 2.5 mg PO MOWESA 12/22/16 12/22/16 History Warfarin [Coumadin] 3.75 mg PO SUTUTHFR 12/22/16 12/22/16 History hydrALAZINE HCL [Apresoline] 50 mg PO TID 12/22/16 12/22/16 History Allergies Allergy/AdvReac Type Severity Reaction Status Date / Time codeine Allergy Unknown Verified 12/22/16 12:12 Physical Exam Vitals: Vital Signs Temp Pulse Pulse Resp BP Pulse Ox 12/26/16 07:00 97.0 F L 85 20 143/88 97 12/25/16 23:00 97.3 F L 74 16 118/56 95 12/25/16 15:00 97.4 F L 78 16 112/60 95 Intake and Output 12/25/16 12/26/16 12/26/16 22:59 06:59 14:59 Other: # Voids 1 1 1 # Bowel Movements 1 - Constitutional General: The patient is awake and alert, in no distress, and does not appear acutely ill. Skin: Skin is warm and dry and no rashes or lesions are noted. Eye: Pupils are equal, round and reactive to light, extra-ocular movements are intact; there is normal conjunctiva bilaterally. Ears, nose, mouth and throat: There are moist mucous membranes and no oral lesions. Neck: The neck is supple, there is no tenderness or JVD. Cardiovascular: Irregular ejection systolic murmur in the aortic area Respiratory: Lungs are clear to auscultation, respirations are non-labored, breath sounds are equal. Gastrointestinal: Soft, non-distended, non-tender abdomen without masses or organomegaly noted. There is no rebound or guarding present. Bowel sounds are unremarkable. Back: There is no tenderness to palpation in the midline. There is no obvious deformity. Musculoskeletal: Normal ROM, no tenderness, There is no pedal edema. There is no calf tenderness or swelling. Extremities: No edema. Vascular: Femoral pulse is normal. Posterior tibial pulses are normal .Dorsalis pedis is palpable. Neurological: CN II-XII intact. There are no obvious motor or sensory deficits. Speech is normal. Psychiatric: Cooperative, appropriate mood & affect, normal judgment. Results 12/22/16 12:45 12/25/16 07:52 Current Medications Generic Name Dose Route Start Last Admin Trade Name Freq PRN Reason Stop Dose Admin Acetaminophen 650 mg 12/22/16 21:06 Tylenol Tab PO Q6HR PRN Fever and/ or Pain Albuterol/Ipratropium 3 ml 12/22/16 17:43 Duoneb 0.5 Mg-3 Mg/3 Ml Soln INHALATION RT-QID PRN Shortness Of Breath Or Wheezing Atenolol 50 mg 12/22/16 21:15 12/25/16 20:08 Tenormin PO 50 mg BID ROSITA Administration Atorvastatin Calcium 20 mg 12/22/16 21:15 12/25/16 20:08 Lipitor PO 20 mg HS ROSITA Administration Furosemide 40 mg 12/24/16 21:00 12/25/16 20:08 Lasix IV 40 mg BID ROSITA Administration Levothyroxine Sodium 75 mcg 12/23/16 06:30 12/26/16 06:40 Synthroid PO 75 mcg DAILY@0630 ROSITA Administration Lisinopril 20 mg 12/24/16 09:00 12/25/16 08:22 Zestril PO 20 mg DAILY ROSITA Administration Miscellaneous Information 1 each 12/22/16 17:18 Pneumonia Protocol Utilized PO ONCE PRN Per Protocol Warfarin Sodium 2 mg 12/24/16 18:00 12/25/16 18:20 Coumadin PO 2 mg DAILY@1800 ROSITA Administration Intake and Output 12/25/16 12/26/16 12/26/16 22:59 06:59 14:59 Other: # Voids 1 1 1 # Bowel Movements 1 12/25/16 07:52 EKG Interpretations (text) Not available Assessment and Plan Plan: Chronic atrial fibrillation with controlled ventricular rate Shortness of breath probably related to acute exacerbation of chronic congestive heart failure diastolic Weight loss workup in progress I reviewed echocardiogram CT scan of the obtain an EKG if one has not been done I reviewed her labs I will treat the patient with the current medications and decide on further course of action
[2016-12-26] MEDS: ATENOLOL 50 MG TAB PO SCH (09:24)
[2016-12-26] MEDS: LISINOPRIL 20 MG TAB PO SCH (09:25)
[2016-12-26] MEDS: FUROSEMIDE 10 MG/ML 4 ML VIAL IV SCH (09:25)
[2016-12-26 09:34] LABS: Anion Gap 7 mmol/L; Blood Urea Nitrogen 35 mg/dL (7-17); Calcium 8.9 mg/dL (8.4-10.2); Carbon Dioxide 38 mmol/L (22-30); Chloride 97 mmol/L (98-107); Glucose 121 mg/dL (74-99); Non-African American GFR(MDRD) >60 (>60 ml/min/1.73 sqM); Sodium 142 mmol/L (137-145)
[2016-12-26 09:51] LABS: Prothrombin Time 19.7 sec (9.0-12.0)
--- NOTE | 2016-12-26 14:57 | P.DS ---
Providers Date of admission: 12/22/16 17:41 Expected date of discharge: 12/26/16 Attending physician: Slime Seaman Consults: 12/24/16 12:56 Consult Physician Routine Consulting Provider: David Her Consult Reason/Comments: 10 ib wt loss, family concerns of cancer Do you want consulting provider notified?: Yes 12/25/16 15:26 Consult Physician Routine Consulting Provider: Ritesh Mittal Consult Reason/Comments: CHF Do you want consulting provider notified?: Yes Primary care physician: Demar Valente [facility] Course: Final Diagnoses: 1. Acute on chronic CHF, diastolic dysfunction 2. Medical Deconditioning 3. Chronic persistent Atrial fibrillation, rate controlled, therapeutic on Coumadin 4. Hyperlipidemia 5. Hypertension 6. Unintentional weight loss with incidental finding of elevated CA- 125, limited pelvic ultrasound reporting no suspicious endometrial thickening or obvious masses. Patient declines further workup. Hospital course: this is an 86-year-old female admitted status post fall with acute diastolic CHF exacerbation, and multiple other medical issues. Reported unintentional weight loss with incidental finding of elevated CEA-125. Limited pelvic ultrasound failed to report any suspicious endometrial thickening or masses. Dr. Her met with the family and Patient declining further workup. Maintained on IV push Lasix. Echo reporting normal LV function Evaluated by cardiology. Significant clinical improvement. Patient cleared by all consults for discharge. Patient is being discharged to [facility] in a stable condition with guarded prognosis. Patient Condition at Discharge: Stable Plan - Discharge Summary Discharge Medication List Atenolol [Tenormin] 50 mg PO BID 12/22/16 [History] Cholecalciferol [Vitamin D3] 1,000 unit PO DAILY 12/22/16 [History] Furosemide [Lasix] 80 mg PO DAILY 12/22/16 [History] Levothyroxine Sodium [Synthroid] 75 mcg PO DAILY 12/22/16 [History] Lisinopril [Zestril] 20 mg PO BID 12/22/16 [History] Potassium Chloride [Klor-Con M15] 15 meq PO DAILY 12/22/16 [History] Simvastatin [Zocor] 40 mg PO HS 12/22/16 [History] Warfarin [Coumadin] 2.5 mg PO MOWESA 12/22/16 [History] Warfarin [Coumadin] 3.75 mg PO SUTUTHFR 12/22/16 [History] Acetaminophen Tab [Tylenol] 650 mg PO Q6HR PRN #0 tab 12/26/16 [Rx] Ipratropium-Albuterol Nebulize [Duoneb 0.5 mg-3 mg/3 ml Soln] 3 ml INHALATION RT -QID #0 ampul.neb 12/26/16 [Rx] Follow up Appointment(s)/Referral(s): David Her MD [STAFF PHYSICIAN] - As Needed (Patient has declined further workup. ) [facility], [NON-STAFF] - Demar Valente DO [Primary Care Provider] - 1 Week (After DC from ECF) Ambulatory/Diagnostic Orders: Prothrombin Time INR [LAB.AMB] Time Frame: 12/28/16, Location: Determined By Patient Patient Instructions/Handouts: Heart Failure (DC) Activity/Diet/Wound Care/Special Instructions: ECF 2 L nasal cannula O2 Discharge Disposition: TRANSFER TO SNF/ECF
[2016-12-26 15:12] VITALS: BP 125/65; PULSE 84; TEMP 96.5
--- NOTE | 2016-12-26 16:28 | P.CONS ---
History of Present Illness - Reason for Consult Consult date: 12/26/16 unintentional wt. loss, elevated tumor markers Requesting physician: Sana Seaman - Chief Complaint fall - History of Present Illness Pt is a very pleasant 86 year old female pt of Dr. Valente who states that for the last several weeks she has had less of an appetite and decreased oral intake as a result, she reports her wt. loss as 9 lbs in 3 months, family reports wt loss at closer to 20-30 lbs in the last 6 months, pt denied masses or lymph node swellings, pain, nausea or vomiting, chest pain, palpitations, mild SOB with exertion, some weakness but she remains independently ambulatory and lives alone. She denies abd pain, bloating or changes in bowel or bladder habits. No personal history of cancer, mother lived to be 106, her of colon cancer. Pt states mammogram last month and colonoscopy about 8 years ago, family denies these age related cancer screenings were done. Review of Systems All systems: negative Constitutional: Reports as per HPI Past Medical History Past Medical History: Atrial Fibrillation, Heart Failure, CVA/TIA, Hyperlipidemia, Hypertension, Osteoarthritis (OA), Pneumonia, Thyroid Disorder Additional Past Medical History / Comment(s): "HEARTBURN" THIN FRAGILE SKIN BRUISES EASILY PLEASE USE PAPER TAPE.UTI'S, [place] WORSE IN RT EAR. 2ND HAND SMOKE( SPOUSE) JEANINE LEG EDEMA, PNE VACCINE 2-3 YEARS AAGO NOT SURE OF DATE UNABLE TO VERIFY AT TIME OF ADMIT/DR OFFICE CLOSED. History of Any Multi-Drug Resistant Organisms: None Reported Past Surgical History: Appendectomy, Cholecystectomy Additional Past Surgical History / Comment(s): LT CATARACT Past Anesthesia/Blood Transfusion Reactions: No Reported Reaction Past Psychological History: No Psychological Hx Reported Smoking Status: Never smoker Past Alcohol Use History: None Reported Past Drug Use History: None Reported - Past Family History Mother Additional Family Medical History / Comment(s): MOM WAS HEALTHY-LIVED TO BE 106 YEARS OLD- FROM OLD AGE Father Additional Family Medical History / Comment(s): TB Medications and Allergies Home Medications Medication Instructions Recorded Confirmed Type Atenolol [Tenormin] 50 mg PO BID 12/22/16 12/22/16 History Cholecalciferol [Vitamin D3] 1,000 unit PO DAILY 12/22/16 12/22/16 History Levothyroxine Sodium [Synthroid] 75 mcg PO DAILY 12/22/16 12/22/16 History Lisinopril [Zestril] 20 mg PO BID 12/22/16 12/22/16 History Potassium Chloride [Klor-Con M15] 15 meq PO DAILY 12/22/16 12/22/16 History Simvastatin [Zocor] 40 mg PO HS 12/22/16 12/22/16 History Warfarin [Coumadin] 2.5 mg PO MOWESA 12/22/16 12/22/16 History Warfarin [Coumadin] 3.75 mg PO SUTUTHFR 12/22/16 12/22/16 History Allergies Allergy/AdvReac Type Severity Reaction Status Date / Time codeine Allergy Unknown Verified 12/22/16 12:12 Physical Exam Vitals: Vital Signs Temp Pulse Pulse Resp BP Pulse Ox 12/26/16 15:00 96.5 F L 84 20 125/65 91 L 12/26/16 07:00 97.0 F L 85 20 143/88 97 12/25/16 23:00 97.3 F L 74 16 118/56 95 Intake and Output 12/26/16 12/26/16 12/26/16 06:59 14:59 22:59 Other: # Voids 1 1 # Bowel Movements 1 - Constitutional General appearance: average body habitus, cooperative, no acute distress - EENT Eyes: anicteric sclerae, normal appearance ENT: hard of hearing, normal oropharynx - Neck Neck: no lymphadenopathy - Respiratory Respiratory: bilateral: CTA - Cardiovascular Heart sounds: normal: S1, S2 leg Peripheral Edema: bilateral: Trace - Gastrointestinal General gastrointestinal: no absent bowel sounds, no decreased bowel sounds, no distended, no hepatomegaly, no hyperactive bowel sounds, normal bowel sounds, no organomegaly, no rigid, no scaphoid, soft, no splenomegaly, no tenderness, no umbilical hernia, no ventral hernia - Neurologic Neurologic: CNII-XII intact - Musculoskeletal Musculoskeletal: strength equal bilaterally - Psychiatric Psychiatric: A&O x's 3, appropriate affect, intact judgment & insight Results CBC & Chem 7: 12/22/16 12:45 12/26/16 08:02 Labs: Abnormal Lab Results - Last 24 Hours (Table) 12/26/16 12/26/16 Range/Units 08:02 08:02 PT 19.7 H (9.0-12.0) sec Chloride 97 L (98-107) mmol/L Carbon Dioxide 38 H (22-30) mmol/L BUN 35 H (7-17) mg/dL Glucose 121 H (74-99) mg/dL Comments: pelvic US report reviewed Chest x-ray: report reviewed CT scan - chest: report reviewed Assessment and Plan (1) Elevated tumor markers Status: Acute (2) Unintentional weight loss of 10% body weight within 6 months Status: Acute Plan: Case was discussed at length with patient and her daughters separately. Pt is not interested in any invasive procedures at this time. It was recommended then that Ca 125 and CEA be rechecked by her PCP once her CHF is managed and under better control. Tumor markers are not specific and not sensitive for diagnosing malignancy. Other conditions (CHF, inflammation of the abdomen, infection) can cause false elevations in tumor markers. Pt and family agree on this plan of care. If tumor markers remain elevated despite resolution of CHF then further work up would be reasonable, if pt wishes to do so. Note will be CC to PCP.
== END 2016-12-26 17:04 | DRG 292 ==
LOC: EC 11:43 → 4MS4W 17:41
PROVIDERS: ADMIT Hospitalist; ATTEND Hospitalist
DX: I50.33 Acute on chronic diastolic (congestive) heart failure (principal); I48.1 Persistent atrial fibrillation; Z79.01 Long term (current) use of anticoagulants; I10 Essential (primary) hypertension; E78.5 Hyperlipidemia, unspecified; I48.2 Chronic atrial fibrillation; I49.3 Ventricular premature depolarization; M19.90 Unspecified osteoarthritis, unspecified site; R09.02 Hypoxemia; E03.9 Hypothyroidism, unspecified; R63.4 Abnormal weight loss; R97.8 Other abnormal tumor markers; S00.83XA Contusion of other part of head, initial encounter; Z79.899 Other long term (current) drug therapy; Z88.5 Allergy status to narcotic agent; W01.0XXA Fall on same level from slipping, tripping and stumbling without subsequent striking against object, initial encounter; Y92.009 Unspecified place in unspecified non-institutional (private) residence as the place of occurrence of the external cause
CPT/HCPCS: 36415; 70450; 70486; 71020; 71250; 76856; 80048; 81001; 82105; 82378; 82550; 82553; 83880; 84484; 85025; 85610; 86300; 86301; 86304; 87040; 93005; 93306; 94760; 96374; 99291

== ENCOUNTER 2017-01-21 07:18 | Inpatient (IN) | payer MEDICARE, OTHER ==
[2017-01-21] MEDS ORDERED: IPRATROPIUM-ALBUTEROL 3 ML NEB INHALATION STA (07:35)
[2017-01-21 07:55] LABS: Anisocytosis Slight; Basophils # (A) 0.1 k/uL (0-0.2); Basophils % (A) 1 %; CH 30.3; Eosinophils # (A) 0.1 k/uL (0-0.7); Eosinophils % (A) 1 %; HCT 32.2 % (34.0-46.0); HDW 3.29; HGB 10.5 gm/dL (11.4-16.0); Luc # (Auto) 0.14; Luc % (Auto) 3; Lymphocytes # (A) 0.6 k/uL (1.0-4.8); Lymphocytes % (A) 11 %; MCH 30.2 pg (25.0-35.0); MCHC 32.6 g/dL (31.0-37.0); MCV 92.6 fL (80.0-100.0); Mean Platelet Volume 9.9; Monocytes # (A) 0.3 k/uL (0-1.0); Monocytes % (A) 6 %; Neutrophils # (A) 4.3 k/uL (1.3-7.7); Neutrophils % (A) 79 %; RBC 3.47 m/uL (3.80-5.40); RDW 16.1 % (11.5-15.5); WBC 5.5 k/uL (3.8-10.6); WBC (Perox) 5.72
[2017-01-21 08:00] LABS: INR 1.9 (<1.1); Partial Thromboplastin Time 30.1 sec (22.0-30.0); Prothrombin Time 18.6 sec (9.0-12.0)
[2017-01-21 08:05] LABS: ALT 32 U/L (9-52); AST 46 U/L (14-36); Alkaline Phosphatase 196 U/L (38-126); Anion Gap 9 mmol/L; Blood Urea Nitrogen 22 mg/dL (7-17); Calcium 9.1 mg/dL (8.4-10.2); Carbon Dioxide 37 mmol/L (22-30); Chloride 92 mmol/L (98-107); Glucose 111 mg/dL (74-99); Non-African American GFR(MDRD) >60 (>60 ml/min/1.73 sqM); Potassium 4.6 mmol/L (3.5-5.1); Sodium 138 mmol/L (137-145); Total Bilirubin 1.6 mg/dL (0.2-1.3); Total Protein 7.3 g/dL (6.3-8.2)
--- NOTE | 2017-01-21 08:48 | CT ---
EXAMINATION TYPE: CT brain wo con DATE OF EXAM: 01/21/2017 8:42 AM COMPARISON: Previous study dated 12/22/2016 HISTORY: Pt having Hallucinations and altered mental status CT DLP: 1054.2 mGycm Automated exposure control for dose reduction was used. FINDINGS: Central structures are midline. There is no evidence of hydrocephalus. There is diffuse per iventricular white matter lucency likely on the basis of chronic ischemic change. There is no acute f ocal lesion, mass effect or midline shift identified. I do not see evidence of intracranial blood. There is mucoperiosteal thickening involving both maxillary sinuses as well as the ethmoid and spheno id sinuses. IMPRESSION: 1. NO ACUTE INTRACRANIAL ABNORMALITY. 2. CHRONIC SINUS MUCOSAL DISEASE.
--- NOTE | 2017-01-21 09:02 | XR ---
EXAMINATION TYPE: XR chest 2V DATE OF EXAM: 01/21/2017 8:51 AM HISTORY: altered mental status. REFERENCE: Previous study dated 12/22/2016. FINDINGS: The heart is mildly enlarged. There is increased opacity adjacent to the right heart border . This may, in part be secondary to rotation. I could not exclude a right lower lobe infiltrate. Left lung is clear. Pleural spaces are clear. IMPRESSION: 1. CARDIOMEGALY. 2. I CANNOT EXCLUDE A RIGHT LOWER LOBE INFILTRATE.
[2017-01-21] MEDS ORDERED: methylPREDNISolone SOD SUCCI 125 MG/2 ML VIAL IV STA (09:08)
[2017-01-21] MEDS ORDERED: ONDANSETRON 4 MG/2 ML VIAL IVP PRN (09:15)
[2017-01-21] MEDS ORDERED: TEMAZEPAM 15 MG CAP PO PRN (09:15)
[2017-01-21] MEDS ORDERED: traMADol 50 MG TAB PO PRN (09:15)
[2017-01-21] MEDS ORDERED: NALOXONE 0.4 MG/ML 1 ML VIAL IV PRN (09:15)
--- NOTE | 2017-01-21 09:15 | ED ---
SOB HPI - General Chief Complaint: Shortness of Breath Stated Complaint: JOEL Time Seen by Provider: 01/21/17 07:33 Source: EMS Mode of arrival: EMS Limitations: no limitations - History of Present Illness Initial Comments: Patient presents with difficulty breathing. She has a history of COPD. Her family was also concerned for altered mental status. Currently she is alert and oriented 3. She denies any belly or back pain. She has no chest pain or pressure. She does complain of worsening shortness of breath. It has been getting worse than usual. Her medications at home are not helping her. She has no neck pain. She has no change in vision or hearing. She has no swelling her legs. She has had no sick contacts. She has not traveled anywhere unusual. - Related Data Home Medications Medication Instructions Recorded Confirmed Atenolol [Tenormin] 50 mg PO BID 12/22/16 12/22/16 Cholecalciferol [Vitamin D3] 1,000 unit PO DAILY 12/22/16 12/22/16 Levothyroxine Sodium [Synthroid] 75 mcg PO DAILY 12/22/16 12/22/16 Lisinopril [Zestril] 20 mg PO BID 12/22/16 12/22/16 Potassium Chloride [Klor-Con M15] 15 meq PO DAILY 12/22/16 12/22/16 Simvastatin [Zocor] 40 mg PO HS 12/22/16 12/22/16 Warfarin [Coumadin] 2.5 mg PO MOWESA 12/22/16 12/22/16 Warfarin [Coumadin] 3.75 mg PO SUTUTHFR 12/22/16 12/22/16 Previous Rx's Medication Instructions Recorded Acetaminophen Tab [Tylenol] 650 mg PO Q6HR PRN #0 tab 12/26/16 Furosemide [Lasix] 40 mg PO BID #0 12/26/16 Ipratropium-Albuterol Nebulize 3 ml INHALATION RT-QID #0 ampul.neb 12/26/16 [Duoneb 0.5 mg-3 mg/3 ml Soln] Allergies Allergy/AdvReac Type Severity Reaction Status Date / Time codeine Allergy Unknown Verified 01/21/17 07:36 Review of Systems ROS Statement: Those systems with pertinent positive or pertinent negative responses have been documented in the HPI. ROS Other: All systems not noted in ROS Statement are negative. Past Medical History Past Medical History: Atrial Fibrillation, Heart Failure, CVA/TIA, Hyperlipidemia, Hypertension, Osteoarthritis (OA), Pneumonia, Thyroid Disorder Additional Past Medical History / Comment(s): "HEARTBURN" THIN FRAGILE SKIN BRUISES EASILY PLEASE USE PAPER TAPE.UTI'S, [place] WORSE IN RT EAR. 2ND HAND SMOKE( SPOUSE) JEANINE LEG EDEMA, PNE VACCINE 2-3 YEARS AAGO NOT SURE OF DATE UNABLE TO VERIFY AT TIME OF ADMIT/DR OFFICE CLOSED. History of Any Multi-Drug Resistant Organisms: None Reported Past Surgical History: Appendectomy, Cholecystectomy Additional Past Surgical History / Comment(s): LT CATARACT Past Anesthesia/Blood Transfusion Reactions: No Reported Reaction Past Psychological History: No Psychological Hx Reported Smoking Status: Never smoker Past Alcohol Use History: None Reported Past Drug Use History: None Reported - Past Family History Mother Additional Family Medical History / Comment(s): MOM WAS HEALTHY-LIVED TO BE 106 YEARS OLD- FROM OLD AGE Father Additional Family Medical History / Comment(s): TB General Exam Limitations: no limitations General appearance: alert, in no apparent distress Head exam: Present: atraumatic, normocephalic, normal inspection Eye exam: Present: normal appearance, PERRL, EOMI. Absent: scleral icterus, conjunctival injection, periorbital swelling ENT exam: Present: normal exam, mucous membranes moist Neck exam: Present: normal inspection. Absent: tenderness, meningismus, lymphadenopathy Respiratory exam: Present: normal lung sounds bilaterally, wheezes. Absent: respiratory distress, rales, rhonchi, stridor Cardiovascular Exam: Present: regular rate, normal rhythm, normal heart sounds. Absent: systolic murmur, diastolic murmur, rubs, gallop, clicks GI/Abdominal exam: Present: soft, normal bowel sounds. Absent: distended, tenderness, guarding, rebound, rigid Extremities exam: Present: normal inspection, full ROM, normal capillary refill. Absent: tenderness, pedal edema, joint swelling, calf tenderness Back exam: Present: normal inspection Neurological exam: Present: alert, oriented X3, CN II-XII intact Psychiatric exam: Present: normal affect, normal mood Skin exam: Present: warm, dry, intact, normal color. Absent: rash Course Vital Signs 01/21/17 01/21/17 01/21/17 07:32 07:36 08:00 Temperature 98.3 F Pulse Rate 97 103 H Respiratory 18 18 Rate Blood Pressure 140/62 O2 Sat by Pulse 80 L Oximetry 01/21/17 01/21/17 01/21/17 08:08 08:35 09:07 Temperature Pulse Rate 108 H 102 H 127 H Respiratory 18 18 Rate Blood Pressure 144/67 130/63 O2 Sat by Pulse 99 94 L Oximetry Medical Decision Making - Medical Decision Making Patient presents with difficulty breathing. She has wheezing. She is given DuoNeb treatment and IV Solu-Medrol. Chest x-ray reveals possible pneumonia. I will send blood cultures and start the patient on antibiotic. She will be admitted to the hospital. - Lab Data Result diagrams: 01/21/17 07:40 01/21/17 07:40 Lab Results 01/21/17 01/21/17 01/21/17 Range/Units 07:40 07:40 07:40 WBC 5.5 (3.8-10.6) k/uL RBC 3.47 L (3.80-5.40) m/uL Hgb 10.5 L (11.4-16.0) gm/dL Hct 32.2 L (34.0-46.0) % MCV 92.6 (80.0-100.0) fL MCH 30.2 (25.0-35.0) pg MCHC 32.6 (31.0-37.0) g/dL RDW 16.1 H (11.5-15.5) % Plt Count 155 (150-450) k/uL Neutrophils % 79 % Lymphocytes % 11 % Monocytes % 6 % Eosinophils % 1 % Basophils % 1 % Neutrophils # 4.3 (1.3-7.7) k/uL Lymphocytes # 0.6 L (1.0-4.8) k/uL Monocytes # 0.3 (0-1.0) k/uL Eosinophils # 0.1 (0-0.7) k/uL Basophils # 0.1 (0-0.2) k/uL Anisocytosis Slight PT (9.0-12.0) sec INR (<1.1) APTT (22.0-30.0) sec Sodium 138 (137-145) mmol/L Potassium 4.6 (3.5-5.1) mmol/L Chloride 92 L (98-107) mmol/L Carbon Dioxide 37 H (22-30) mmol/L Anion Gap 9 mmol/L BUN 22 H (7-17) mg/dL Creatinine 0.70 (0.52-1.04) mg/dL Est GFR (MDRD) Af Amer >60 (>60 ml/min/1.73 sqM) Est GFR (MDRD) Non-Af >60 (>60 ml/min/1.73 sqM) Glucose 111 H (74-99) mg/dL Calcium 9.1 (8.4-10.2) mg/dL Total Bilirubin 1.6 H (0.2-1.3) mg/dL AST 46 H (14-36) U/L ALT 32 (9-52) U/L Alkaline Phosphatase 196 H (38-126) U/L Ammonia 10 (<30) umol/L Troponin I (0.000-0.034) ng/mL Total Protein 7.3 (6.3-8.2) g/dL Albumin 3.8 (3.5-5.0) g/dL 01/21/17 01/21/17 Range/Units 07:40 07:40 WBC (3.8-10.6) k/uL RBC (3.80-5.40) m/uL Hgb (11.4-16.0) gm/dL Hct (34.0-46.0) % MCV (80.0-100.0) fL MCH (25.0-35.0) pg MCHC (31.0-37.0) g/dL RDW (11.5-15.5) % Plt Count (150-450) k/uL Neutrophils % % Lymphocytes % % Monocytes % % Eosinophils % % Basophils % % Neutrophils # (1.3-7.7) k/uL Lymphocytes # (1.0-4.8) k/uL Monocytes # (0-1.0) k/uL Eosinophils # (0-0.7) k/uL Basophils # (0-0.2) k/uL Anisocytosis PT 18.6 H (9.0-12.0) sec INR 1.9 (<1.1) APTT 30.1 H (22.0-30.0) sec Sodium (137-145) mmol/L Potassium (3.5-5.1) mmol/L Chloride (98-107) mmol/L Carbon Dioxide (22-30) mmol/L Anion Gap mmol/L BUN (7-17) mg/dL Creatinine (0.52-1.04) mg/dL Est GFR (MDRD) Af Amer (>60 ml/min/1.73 sqM) Est GFR (MDRD) Non-Af (>60 ml/min/1.73 sqM) Glucose (74-99) mg/dL Calcium (8.4-10.2) mg/dL Total Bilirubin (0.2-1.3) mg/dL AST (14-36) U/L ALT (9-52) U/L Alkaline Phosphatase (38-126) U/L Ammonia (<30) umol/L Troponin I <0.012 (0.000-0.034) ng/mL Total Protein (6.3-8.2) g/dL Albumin (3.5-5.0) g/dL 01/21/17 09:14 12-lead EKG is obtained, interpreted by me showing ventricular rate 107 bpm, no P waves are present, there is evidence of atrial fibrillation, QRS complexes are normal, interpreted by me as atrial fibrillation Disposition Clinical Impression: Pneumonia, COPD (chronic obstructive pulmonary disease) Disposition: ADMITTED IP TO THIS HOSP Condition: Serious Time of Disposition: 09:15
[2017-01-21 09:18] LABS: Appearance,Urine Clear (Clear); Bilirubin,Urine Negative (Negative); Glucose,Urine (UA) Negative (Negative); Ketones,Urine Negative (Negative); Leukocyte Esterase,Urine Moderate (Negative); Nitrite,Urine Negative (Negative); PH, Urine 6.5 (5.0-8.0); Particle Count 659; Protein,Urine Trace (Negative); RBC,Urine 10 /hpf (0-5); UA Billing (MACRO vs. MICRO) MICRO; WBC,Urine 70 /hpf (0-5)
[2017-01-21] MEDS ORDERED: ACETAMINOPHEN TAB 500 MG TAB PO STA (09:35)
[2017-01-21 11:15] LABS: Glucose,Whole Blood 125 mg/dL (75-99)
[2017-01-21] MEDS: IPRATROPIUM-ALBUTEROL 3 ML NEB INHALATION SCH ×3 (11:23→19:55)
[2017-01-21 13:25] VITALS: BMI 26.6
--- NOTE | 2017-01-21 16:53 | HP ---
Patient is an 86-year-old female with a history of COPD, came in with cough and sputum production. Patient did have fever, does not have any leukocytosis. I believe patient has pneumonia. I started her on Zosyn. I had an extensive discussion with the patient and the family, as patient has multiple admissions in the past. Patient was admitted in the past for vaginal bleeding and patient at that time had elevated markers for urogenital cancers and patient had a thickened endometrium. Patient was never proven to have uterine cancer, but there was high suspicion for that. Patient has multiple admissions in the past. Patient was admitted with CHF. Patient's functionality is extremely poor, because of which patient's family is requesting palliative care or hospice. We are getting hospice people to have a discussion with the family. I had an extensive discussion with the patient as well, gave her information about hospice and discussed regarding the options of hospice versus complete treatment. Patient is also on Coumadin for atrial fibrillation. INR is close to therapeutic, which is 1.9. Patient has extremely poor functionality, which puts her Karnofsky score around 20 or less. Thin built, cachectic does appear to be malnourished. Because of her age and poor functionality, patient is definitely appropriate for palliative care and possibly hospice as well, although until family and patient make a decision, patient will be continued on antibiotic treatment in the form of Zosyn, as the patient is a recent admission. Will treat her healthcare-associated pneumonia. Patient came in with altered mental status and mental status is at her baseline at this time. REVIEW OF SYSTEMS: CONSTITUTIONAL: No fever, no malaise, no fatigue. HEENT: No recent visual problems or hearing problems. Denied any sore throat. CARDIOVASCULAR: No chest pain, orthopnea, PND, no palpitations, no syncope. PULMONARY: As described in HPI. GASTROINTESTINAL: No diarrhea, no nausea, no vomiting, no abdominal pain. Normoactive bowel sounds. NEUROLOGICAL: No headaches, no weakness, no numbness. HEMATOLOGICAL: Denies any bleeding or petechiae. GENITOURINARY: Denies any burning micturition, frequency, or urgency. MUSCULOSKELETAL/RHEUMATOLOGICAL: Denies any joint pain, swelling, or any muscle pain. ENDOCRINE: Denies any polyuria or polydipsia. The rest of the 14 point review of systems is negative. Home medications include: 1. Atenolol. 2. Coreg. 3. ( ). 4. Levothyroxine. 5. Lisinopril. 6. Potassium chloride. 7. Simvastatin. 8. Coumadin. 9. Patient is also on Lasix 40 mg oral b.i.d. 10. Ipratropium-albuterol. Patient has diastolic dysfunction. Past medical history is significant for atrial fibrillation, congestive heart failure, chronic diastolic dysfunction, CVAD in the past, hyperlipidemia, hypertension, hypothyroidism, possibility of endometrial cancer, was never diagnosed. The patient had multiple episodes of vaginal bleed apparently in the past. PAST SURGICAL HISTORY: Appendectomy, cholecystectomy. SOCIAL HISTORY: Denied any smoking, alcohol abuse or any drug abuse. FAMILY HISTORY: Mother lived up to 106 years of age. Father had tuberculosis. PHYSICAL EXAMINATION: VITAL SIGNS: Temperature 98.5, pulse of 102, respiratory rate of 24, blood pressure is 128/63, saturating at 99% on 100% nonrebreather which we are tapering down, weaning off. GENERAL: The patient is thin-built; tired, malaise. HEENT: Pupils are round and equally reacting to light. EOMI. No scleral icterus. No conjunctival pallor. Normocephalic, atraumatic. No pharyngeal erythema. No thyromegaly. CARDIOVASCULAR: S1 and S2 present. No murmurs, rubs, or gallops. PULMONARY: Rhonchus breath sounds bilaterally. Fairly good air entry into bilateral lung bases. ABDOMEN: Soft, nontender, nondistended, normoactive bowel sounds. No palpable organomegaly. MUSCULOSKELETAL: No joint swelling or deformity. EXTREMITIES: No cyanosis, clubbing, or pedal edema. NEUROLOGICAL: No focal neurological deficit, but patient does have generalized weakness. SKIN: No rashes. LABORATORY DATA: CBC, CMP: No significant abnormality except for elevated bicarbonate of 37. UA showed a WBC of 70, although patient does not have any symptoms of urinary tract infection at this time. Chest x-ray: Right lower lobe to middle lobe infiltrate as mentioned above. Brain CT did not show any significant acute abnormality. ASSESSMENT: 1. Altered mental status secondary to toxic encephalopathy, possibly from pneumonia. 2. Acute hypoxic respiratory failure secondary to right lower lobe pneumonia. Patient will be started on Zosyn because of her recent admission to the hospital. Sputum cultures and blood cultures will be obtained. 3. Extremely poor functionality and deconditioning, with the possibility of undiagnosed uterine cancer. I discussed extensively regarding options of palliative care and hospice with the family. 4. History of atrial to congestive heart failure, chronic diastolic dysfunction without any acute exacerbation. Patient will be resumed on her home regimen of diuretic therapy as well as lisinopril. Patient is on Coumadin anticoagulation with INR 1.9. Repeat INR tomorrow. 5. Hypertension. 6. Osteoarthritis. PLAN: As mentioned in the interval history and assessment.
[2017-01-21] MEDS: PIPERACILLIN-TAZOBACTAM 3.375 GM in DEXTROSE/WATER 1 50ML.BAG IVPB SCH ×2 (17:14→23:34)
[2017-01-21] MEDS: FUROSEMIDE 80 MG TAB PO SCH (17:17)
[2017-01-21] MEDS ORDERED: WARFARIN 2.5 MG TAB PO SCH (18:00)
[2017-01-21] MEDS: ATENOLOL 50 MG TAB PO SCH (20:00)
[2017-01-21] MEDS: FAMOTIDINE 20 MG TAB PO SCH (20:00)
[2017-01-21] MEDS ORDERED: LISINOPRIL 20 MG TAB PO SCH (21:00)
[2017-01-21] MEDS ORDERED: ATORVASTATIN 20 MG TAB PO SCH (21:00)
[2017-01-22] MEDS ORDERED: LEVOTHYROXINE 75 MCG TAB PO SCH (06:30)
[2017-01-22] MEDS: IPRATROPIUM-ALBUTEROL 3 ML NEB INHALATION SCH ×3 (08:03→14:59)
[2017-01-22] MEDS: PIPERACILLIN-TAZOBACTAM 3.375 GM in DEXTROSE/WATER 1 50ML.BAG IVPB SCH (08:13)
[2017-01-22] MEDS: FAMOTIDINE 20 MG TAB PO SCH (08:13)
[2017-01-22] MEDS: ATENOLOL 50 MG TAB PO SCH (08:13)
[2017-01-22] MEDS: FUROSEMIDE 80 MG TAB PO SCH (08:14)
[2017-01-22 08:22] VITALS: BP 175/88; RESP 19; TEMP 97.6
[2017-01-22 08:22] LABS: INR 2.6 (<1.1); Prothrombin Time 24.6 sec (9.0-12.0)
[2017-01-22 08:34] LABS: Anion Gap 12 mmol/L; Blood Urea Nitrogen 42 mg/dL (7-17); Calcium 9.7 mg/dL (8.4-10.2); Carbon Dioxide 33 mmol/L (22-30); Chloride 94 mmol/L (98-107); Glucose 159 mg/dL (74-99); Non-African American GFR(MDRD) >60 (>60 ml/min/1.73 sqM); Potassium 4.6 mmol/L (3.5-5.1); Sodium 139 mmol/L (137-145)
[2017-01-22] MEDS ORDERED: LISINOPRIL 10 MG TAB PO SCH (09:00)
[2017-01-22] MEDS ORDERED: MORPHINE SULFATE 4 MG/ML SYRINGE IVP PRN (10:56)
[2017-01-22 12:04] VITALS: PULSE 68
--- NOTE | 2017-01-22 14:57 | PN ---
An 86-year-old female who came in with possible pneumonia. Patient is being treated for healthcare associated pneumonia. I had extensive discussion with the family yesterday. Please refer to my dictation from yesterday. Patient has an extremely poor functionality. Hospice discussion was made yesterday and today and after family discussion decision was made by family, me and patient together that patient will be made hospice today. Will continue all the comfort medications. Antibiotics will be discontinued. REVIEW OF SYSTEMS: Irrelevant at this time. MEDICATIONS: Multiple medications changes were made. The patient was started only on comfort medications. PHYSICAL EXAMINATION: Temperature 97.6, pulse of 80, respiratory rate of 19, blood pressure 175/88, saturating at 92 on 5 liters of O2. GENERAL: The patient is alert and oriented x3, not in any acute distress. Well developed, well nourished. HEENT: Pupils are round and equally reacting to light. EOMI. No scleral icterus. No conjunctival pallor. Normocephalic, atraumatic. No pharyngeal erythema. No thyromegaly. CARDIOVASCULAR: S1 and S2 present. No murmurs, rubs, or gallops. RESPIRATORY: Rhonchus breath sounds bilaterally. No wheezing was appreciated. ABDOMEN: Soft, nontender, nondistended, normoactive bowel sounds. No palpable organomegaly. MUSCULOSKELETAL: No joint swelling or deformity. EXTREMITIES: No cyanosis, clubbing, or pedal edema. NEUROLOGICAL: Gross neurological examination did not reveal any focal deficits. SKIN: No rashes. LABORATORY DATA: Irrelevant at this point of time. INR is 2.6. ASSESSMENT AND PLAN: 1. Toxic encephalopathy from pneumonia. 2. Acute hypoxic respiratory failure secondary to pneumonia. 3. Overall poor prognosis is extreme poor functionality and age. 4. Possibility of never proven endometrial cancer. 5. History of congestive heart failure, chronic diastolic dysfunction without any acute exacerbation at this point of time. 6. Hypertension. 7. Osteoarthritis. PLAN: As mentioned in the interval history
[2017-01-22] MEDS ORDERED: WARFARIN 2.5 MG TAB PO SCH (18:00)
--- NOTE | 2017-01-22 21:21 | DS ---
DATE OF ADMISSION: 01/21/2017 DATE OF DISCHARGE: 01/22/2017 Patient is being discharged today to hospice home. Please refer to my dictation progress note for further details of discharge. Discharge diet as tolerated. Follow up with Dr. Demar Valente on as-needed basis.
[2017-01-24] MEDS ORDERED: ASPIRIN 81 MG CHEW PO SCH (09:00)
== END 2017-01-22 15:25 | disposition hospice, inpatient (51) | DRG 189 ==
LOC: EC 07:18 → 6ICU 09:16 → 5ONC 15:19
PROVIDERS: ADMIT Internal Medicine; ATTEND Internal Medicine
DX: J96.01 Acute respiratory failure with hypoxia (principal); J18.9 Pneumonia, unspecified organism; G92 Toxic encephalopathy; E46 Unspecified protein-calorie malnutrition; I11.0 Hypertensive heart disease with heart failure; R64 Cachexia; J44.0 Chronic obstructive pulmonary disease with (acute) lower respiratory infection; I50.32 Chronic diastolic (congestive) heart failure; I48.91 Unspecified atrial fibrillation; E03.9 Hypothyroidism, unspecified; E78.5 Hyperlipidemia, unspecified; M19.90 Unspecified osteoarthritis, unspecified site; Y95 Nosocomial condition; Z51.5 Encounter for palliative care; Z79.01 Long term (current) use of anticoagulants; Z79.899 Other long term (current) drug therapy; Z86.73 Personal history of transient ischemic attack (TIA), and cerebral infarction without residual deficits; C54.1 Malignant neoplasm of endometrium; Z68.26 Body mass index [BMI] 26.0-26.9, adult; Z77.22 Contact with and (suspected) exposure to environmental tobacco smoke (acute) (chronic)
CPT/HCPCS: 36415; 70450; 71020; 80048; 80053; 81001; 82140; 83605; 84484; 85025; 85610; 85730; 87040; 87086; 87502; 93005; 94640; 94760; 96365; 96375; 99285